=== PATIENT | female | born 1960 | race Caucasian/White ===

== ENCOUNTER 2016-08-20 20:35 | Inpatient (IN) ==
--- OUTSIDE RECORDS SUMMARY | 2016-08-20 20:50 | External Medical Summary | CCD ---
:1960 Author Name HUI GIRALDO Alma Address [address], [place] [phone] Care Team Providers Name Role Phone PHU PHILLIPS Attending Physician Unavailable Vital Signs Unknown or Not Available. Allergies Unknown or Not Available. Procedures Unknown or Not Available. History of Immunizations Unknown or Not Available. Problems Unknown or Not Available. Results Unknown or Not Available. Medications Unknown or Not Available. Medications Administered Unknown or Not Available. Encounters Unknown or Not Available. Social History Smoking Status Code Start Date End Date Never smoker [id number] Patient Decision Aids Unknown or Not Available. Discharge Instructions You were admitted to [facility] on 12/03/2013. You were discharged from [facility] on 12/03/2013. Should you have any questions prior to discharge, please contact a member of your healthcare team. If you have left the hospital and have any questions, please contact your primary care physician. Chief Complaint and Reason For Visit Chief Complaint Date of Onset MRI BRAIN WWO CONTR Function Status Unknown or Not Available. Plan of Care Unknown or Not Available. Referral/Transition of Care Unknown or Not Available.
--- OUTSIDE RECORDS SUMMARY | 2016-08-20 20:50 | External Medical Summary | CCD ---
:1960 Author Name ASHA BUENO Address [address], [place] [id number] Care Team Providers Name Role Phone HEATHER RIOJAS Attending Physician Unavailable Vital Signs Unknown or Not Available. Allergies Allergy Code Allergy Type Reaction Status No Known Drug Allergies 0 No known drug allergies Active Procedures Unknown or Not Available. History of Immunizations Unknown or Not Available. Problems Unknown or Not Available. Results PROTEIN ELECTROPHORESIS, 24-HR URINE - Collect Date/Time: 07/17/2015 07:00 Test Name Code Test Result Test Units Test Ref Range Protein,Total,Urine 2888-6 <4.0 mg/dL Not Estab. Prot,24hr calculated 2889-4 <124.0 30.0-150.0 Albumin, U 19607-6 28.3 % NOT ESTAB. Xzevl-9-Xqhdwnz[place] [address]-0 15.1 % NOT ESTAB. Mxamt-0-Xtzlvxqh, [place] [address]-8 20.0 % [place] [address]-3 8.5 % [place]. [place] [address]-9 28.1 % NOT ESTAB. TOTAL VOLUME: 3100 mL N/A M-Alexandro, % 09186-2 Not Observed N/A Not Observed M-Alexandro, mg/24 hr 86330-3 PRODUCTION METAL SPRAYER N/A Active Medications Unknown or Not Available. Medications Administered During Visit Unknown or Not Available. Encounters Unknown or Not Available. Social History Smoking Status Code Start Date End Date Never smoker [id number] Patient Decision Aids Unknown or Not Available. Discharge Instructions You were admitted to [facility] on 07/15/2015 10:42 You had the following tests done:PROTEIN ELECTROPHORESIS, 24-HR URINE You were discharged from [facility] Should you have any questions prior to discharge, please contact a member of your healthcare team. If you have left the hospital and have any questions, please contact your primary care physician. Chief Complaint and Reason For Visit Chief Complaint Date of Onset RECURRING LAB Function Status Unknown or Not Available. Plan of Care Unknown or Not Available. Referral/Transition of Care Unknown or Not Available.
--- OUTSIDE RECORDS SUMMARY | 2016-08-20 20:50 | External Medical Summary | CCD ---
:1960 Author Name NILDA OLIVARES Address [address] [place], [place] [phone] Care Team Providers Name Role Phone NEIL MAHAN MD Attending Physician Unavailable Vital Signs Unknown. Allergies Unknown. Procedures Unknown. History of Immunizations Unknown. Problems Unknown. Results CBC W/ DIFF Test Name Code Test Result Test Units Test Date/Time WBC 11.6000 x10^3 05/13/2013 13:00 RBC 5.0600 x10^6 05/13/2013 13:00 HEMOGLOBIN 15.7000 g/dL 05/13/2013 13:00 HEMATOCRIT 44.9000 % 05/13/2013 13:00 MCV 89.0000 fL 05/13/2013 13:00 MCH 31.0000 pg 05/13/2013 13:00 MCHC 34.9000 g/dL 05/13/2013 13:00 RDW 11.7000 % 05/13/2013 13:00 PLATELETS 310.0000 x10^3 05/13/2013 13:00 MPV 8.0000 fL 05/13/2013 13:00 NEUTROPHILS 67.6000 % 05/13/2013 13:00 LYMPHOCYTES 26.3000 % 05/13/2013 13:00 MONOCYTES 4.7000 % 05/13/2013 13:00 EOSINOPHILS 1.2000 % 05/13/2013 13:00 BASOPHILS 0.2000 % 05/13/2013 13:00 REFLEX MAN DIFF NO N/A 05/13/2013 13:00 COMP METABOLIC Test Name Code Test Result Test Units Test Date/Time GLUCOSE 100.0000 mg/dL 05/13/2013 13:00 BUN 10.0000 mg/dL 05/13/2013 13:00 CREATININE 1.4000 mg/dL 05/13/2013 13:00 AGE 52.0000 YE[age] 05/13/2013 13:00 GFR 41.6000 05/13/2013 13:00 SODIUM 141.0000 mmol/L 05/13/2013 13:00 POTASSIUM 3.9000 mmol/L 05/13/2013 13:00 CHLORIDE 103.0000 mmol/L 05/13/2013 13:00 CO2 27.0000 mmol/L 05/13/2013 13:00 CALCIUM 9.4000 mg/dL 05/13/2013 13:00 AST 26.0000 U/L 05/13/2013 13:00 ALT 40.0000 U/L 05/13/2013 13:00 ALKALINE PHOS 79.0000 U/L 05/13/2013 13:00 TOTAL PROTEIN 8.0000 g/dL 05/13/2013 13:00 ALBUMIN 4.2000 g/dL 05/13/2013 13:00 TOTAL BILI 0.5000 mg/dL 05/13/2013 13:00 TSH Test Name Code Test Result Test Units Test Date/Time TSH 2.1200 uIU/mL 05/13/2013 13:00 Medications Unknown. Medications Administered Unknown. Encounters Unknown. Social History Smoking Status Code Start Date End Date Never smoker [id number] Patient Decision Aids Unknown. Instructions You were admitted to [facility] on 05/13/2013. You were discharged from [facility] on 05/13/2013. Should you have any questions prior to discharge, please contact a member of your healthcare team. If you have left the hospital and have any questions, please contact your primary care physician. Chief Complaint and Reason For Visit Chief Complaint Date of Onset LAB Function Status Unknown. Plan of Care Unknown. Referral/Transition of Care Unknown.
--- OUTSIDE RECORDS SUMMARY | 2016-08-20 20:50 | External Medical Summary | CCD ---
:1960 Author Name ENZOHUI Alma Address [address], [place] [id number] Care Team Providers Name Role Phone SOFI DIAZ Attending Physician Unavailable Vital Signs Unknown or Not Available. Allergies Allergy Code Allergy Type Reaction Status No Known Drug Allergies 0 No known drug allergies Active Procedures Unknown or Not Available. History of Immunizations Unknown or Not Available. Problems Unknown or Not Available. Results COMP METABOLIC - Collect Date/Time: 06/19/2014 14:50 Test Name Code Test Result Test Units Test Ref Range GLUCOSE 110 mg/dL L=70 H=110 BUN 23 mg/dL L=7 H=18 CREATININE 1.90 mg/dL L=0.60 H=1.30 AGE 53 YEARS GFR 29.2 SODIUM 142 mmol/L L=136 H=145 POTASSIUM 3.9 mmol/L L=3.5 H=5.1 CHLORIDE 104 mmol/L L=98 H=107 CO2 28 mmol/L L=21 H=32 CALCIUM 9.2 mg/dL L=8.5 H=10.1 AST 23 U/L L=15 H=37 ALT 29 U/L L=12 H=78 ALKALINE PHOS 53 U/L L=50 H=136 TOTAL PROTEIN 7.3 g/dL L=6.4 H=8.2 ALBUMIN 3.7 g/dL L=3.4 H=5.0 TOTAL BILI 0.30 mg/dL L=0.00 H=1.00 LIPID PANEL - Collect Date/Time: 06/19/2014 14:50 Test Name Code Test Result Test Units Test Ref Range CHOLESTEROL 170 mg/dL L=0 H=200 TRIGLYCERIDES 183 mg/dL L=30 H=150 HDL 34 mg/dL L=50 H=60 LDL, CALC 99 mg/dL L=0 H=100 VLDL 37 mg/dL L=0 H=40 CHOL/HDL RISK 5.0 RATIO L=0.0 H=4.4 PT FASTING: NO N/A MICROALBUMIN/CREATININE RATIO - Collect Date/Time: 06/20/2014 15:43 Test Name Code Test Result Test Units Test Ref Range MICROALBUMIN 1.0 mg/dL L=0.1 H=2.0 CREAT, URINE 150.2 mg/dL MICROALB/CREAT 6.7 ug/mg L=0.0 H=29.9 Active Medications Unknown or Not Available. Medications Administered During Visit Unknown or Not Available. Encounters Unknown or Not Available. Social History Smoking Status Code Start Date End Date Never smoker [id number] Patient Decision Aids Unknown or Not Available. Discharge Instructions You were [facility] to [facility] on 06/19/2014. You were discharged from [facility] on 06/20/2014. Should you have any questions prior to discharge, please contact a member of your healthcare team. If you have left the hospital and have any questions, please contact your primary care physician. Chief Complaint and Reason For Visit Unknown or Not Available. Function Status Unknown or Not Available. Plan of Care Unknown or Not Available. Referral/Transition of Care Unknown or Not Available.
--- OUTSIDE RECORDS SUMMARY | 2016-08-20 20:50 | External Medical Summary | Continuity of Care Document ---
:1960 Demographics Phone Unavailable Preferred Language Unknown Marital Status Unknown Zoroastrianism Affiliation Unknown Race Unknown Ethnic Group Unknown Author Organization [facility] Allergies Medications Problems Procedures Results Encounters ACCT No. Visit Discharge Status Pt. Type Provider Facility Loc./Unit Complaint Date/Time [id number] 03/04/2016 ACT Unknown 1222 09:48:00 [id number] 08/12/2015 ACT Unknown 0606 08:35:00 [id number] 07/30/2015 ACT Unknown 0519 07:36:00 [id number] 04/24/2015 ACT Unknown 0215 09:50:00 [id number] 03/26/2015 ACT Unknown 1116 18:08:00 [id number] 12/13/2013 ACT Unknown 1007 13:06:00 [id number] 05/20/2013 ACT Unknown 0314 07:13:00 [id number] 05/20/2013 ACT Unknown 0311 07:12:00
--- OUTSIDE RECORDS SUMMARY | 2016-08-20 20:50 | External Medical Summary | CCD ---
:1960 Author Name ASHA BUENO Address [address], [place] [phone] Care Team Providers Name Role Phone VIKASH MAC Attending Physician Unavailable Vital Signs Unknown or Not Available. Allergies Allergy Code Allergy Type Reaction Status No Known Drug Allergies 0 No known drug allergies Active Procedures Unknown or Not Available. History of Immunizations Unknown or Not Available. Problems Unknown or Not Available. Results BASIC METABOLIC - Collect Date/Time: 01/08/2015 13:30 Test Name Code Test Result Test Units Test Ref Range GLUCOSE 110 mg/dL L=70 H=110 BUN 25 mg/dL L=7 H=18 CREATININE 2.00 mg/dL L=0.60 H=1.30 AGE 54 YEARS GFR 27.4 SODIUM 141 mmol/L L=136 H=145 POTASSIUM 4.0 mmol/L L=3.5 H=5.1 CHLORIDE 103 mmol/L L=98 H=107 CO2 29 mmol/L L=21 H=32 CALCIUM 9.6 mg/dL L=8.5 H=10.1 Active Medications Unknown or Not Available. Medications Administered During Visit Unknown or Not Available. Encounters Unknown or Not Available. Social History Smoking Status Code Start Date End Date Never smoker [id number] Patient Decision Aids Unknown or Not Available. Discharge Instructions You were admitted to [facility] on 01/08/2015. You were discharged from [facility] on 01/08/2015. Should you have any questions prior to [...]
--- OUTSIDE RECORDS SUMMARY | 2016-08-20 20:50 | External Medical Summary | CCD ---
:1960 Author Name NILDA OLIVARES Address [address] [place], [place] [address] Care Team Providers Name Role Phone NEIL MAHAN MD Attending Physician Unavailable Vital Signs Unknown. Allergies Unknown. Procedures Unknown. History of Immunizations Unknown. Problems Unknown. Results Unknown. Medications Unknown. Medications Administered Unknown. Encounters Unknown. Social History Smoking Status Code Start Date End Date Never smoker [phone] Patient Decision Aids Unknown. Instructions You were admitted to [facility] on 05/14/2013. You were discharged from [facility] on 05/14/2013. Should you have any questions prior to discharge, please contact a member of your healthcare team. If you have left the hospital and have any questions, please contact your primary care physician. Chief Complaint and Reason For Visit Chief Complaint Date of Onset US DUPLEX OF ABD VESSELS Function Status Unknown. Plan of Care Unknown. Referral/Transition of Care Unknown.
--- OUTSIDE RECORDS SUMMARY | 2016-08-20 20:50 | External Medical Summary | CCD ---
:1960 Author Name ASHA BUENO Address [address] [place] [address], [place] [address] Care Team Providers Name Role Phone HEATHER RIOJAS Attending Physician Unavailable Vital Signs Unknown or Not Available. Allergies Allergy Code Allergy Type Reaction Status No Known Drug Allergies 0 No known drug allergies Active Procedures Unknown or Not Available. History of Immunizations Unknown or Not Available. Problems Unknown or Not Available. Results RENAL FUNCTION PANEL - Collect Date/Time: 07/27/2015 11:42 Test Name Code Test Result Test Units Test Ref Range GLUCOSE 103 mg/dL L=70 H=110 BUN 21 mg/dL L=7 H=18 CREATININE 1.67 mg/dL L=0.60 H=1.30 AGE 54 YEARS GFR 31.7 SODIUM 141 mmol/L L=136 H=145 POTASSIUM 4.3 mmol/L L=3.5 H=5.1 CHLORIDE 105 mmol/L L=98 H=107 CO2 28 mmol/L L=21 H=32 CALCIUM 9.4 mg/dL L=8.5 H=10.1 ALBUMIN 3.8 g/dL L=3.4 H=5.0 PHOSPHORUS 4.0 mg/dL L=2.5 H=4.9 CBC (HEMOGRAM ONLY) - Collect Date/Time: 07/27/2015 11:42 Test Name Code Test Result Test Units Test Ref Range WBC 7.9 x10^3 L=4.8 H=10.8 RBC 4.48 x10^6 L=4.20 H=5.40 HEMOGLOBIN 13.4 g/dL L=12.0 H=16.0 HEMATOCRIT 39.9 % L=37.0 H=47.0 MCV 89 fL L=80 H=100 MCH 30.0 pg L=27.0 H=33.0 MCHC 33.7 g/dL L=33.0 H=37.0 RDW 12.8 % L=11.5 H=14.5 PLATELETS 326 x10^3 L=150 H=450 MPV 7.6 fL L=7.8 H=11.0 PTH, INTACT - Collect Date/Time: 07/27/2015 11:42 Test Name Code Test Result Test Units Test Ref Range PTH, Intact 2731-8 38 pg/mL 15-65 Active Medications Unknown or Not Available. Medications Administered During Visit Unknown or Not Available. Encounters Encounter Diagnosis Diagnosis Code Start Date Chronic kidney disease, stage 4 (severe) N184 07/27/2015 Social History Smoking Status Code Start Date End Date Never smoker [id number] Patient Decision Aids Unknown or Not Available. Discharge Instructions You were admitted to [facility] on 07/27/2015 14:10 with a principal diagnosis of Chronic kidney disease, stage 4 (severe) You had the following tests done:CBC (HEMOGRAM ONLY)PTH, INTACTRENAL FUNCTION PANEL You were discharged from [facility] on 07/27/2015 14:11 Should you have any questions prior to discharge, please contact a member of your healthcare team. If you have left the hospital and have any questions, please contact your primary care physician. Chief Complaint and Reason For Visit Chief Complaint Date of Onset LAB Function Status Unknown or Not Available. Plan of Care Unknown or Not Available. Referral/Transition of Care Unknown or Not Available.
--- OUTSIDE RECORDS SUMMARY | 2016-08-20 20:50 | External Medical Summary | CCD ---
:1960 Author Name ASHA BUENO Address [address], [place] [phone] Care Team Providers Name Role Phone HEATHER RIOJAS Attending Physician Unavailable Vital Signs Unknown or Not Available. Allergies Allergy Code Allergy Type Reaction Status No Known Drug Allergies 0 No known drug allergies Active Procedures Unknown or Not Available. History of Immunizations Unknown or Not Available. Problems Unknown or Not Available. Results RENAL FUNCTION PANEL - Collect Date/Time: 03/02/2015 14:05 Test Name Code Test Result Test Units Test Ref Range GLUCOSE 107 mg/dL L=70 H=110 BUN 17 mg/dL L=7 H=18 CREATININE 2.00 mg/dL L=0.60 H=1.30 AGE 54 YEARS GFR 27.4 SODIUM 138 mmol/L L=136 H=145 POTASSIUM 4.3 mmol/L L=3.5 H=5.1 CHLORIDE 103 mmol/L L=98 H=107 CO2 26 mmol/L L=21 H=32 CALCIUM 9.5 mg/dL L=8.5 H=10.1 ALBUMIN 4.0 g/dL L=3.4 H=5.0 PHOSPHORUS 4.4 mg/dL L=2.5 H=4.9 CREATININE, URINE - Collect Date/Time: 03/02/2015 14:09 Test Name Code Test Result Test Units Test Ref Range CREAT, URINE 45.8 mg/dL TOTAL PROTEIN, URINE - Collect Date/Time: 03/02/2015 14:09 Test Name Code Test Result Test Units Test Ref Range PROTEIN, URINE <6.0 mg/dL L=0.0 H=11.9 UA AUTO W/ MICRO - Collect Date/Time: 03/02/2015 14:09 Test Name Code Test Result Test Units Test Ref Range COLOR Yellow N/A NORMAL: Yellow APPEARANCE Clear N/A NORMAL: Clear GLUCOSE Negative N/A NORMAL: Negative BILIRUBIN Negative N/A NORMAL: Negative KETONE Negative N/A NORMAL: Negative SPEC GRAVITY <=1.005 N/A NORMAL: 1.005-1.030 BLOOD Negative N/A NORMAL: Negative PROTEIN Negative N/A NORMAL: Negative PH 5.0 N/A NORMAL: 5.0-8.0 UROBILINOGEN 0.2 N/A NORMAL: Negative NITRITE Negative N/A NORMAL: Negative LEUKOCYTES Negative N/A NORMAL: Negative MICRO RBC None Seen N/A NORMAL: 0-2 MICRO WBC 0-2 N/A NORMAL: 0-2 BACTERIA None Seen N/A NORMAL: None-Trace EPI CELLS 0-5 N/A NORMAL: 0-15 MUCUS None Seen N/A NORMAL: None-Small AMORPHOUS None Seen N/A NORMAL: None Seen YEAST None Seen N/A NORMAL: None Seen CRYSTALS None Seen N/A NORMAL: None Seen CAST None Seen N/A NORMAL: None Seen URINE CULTURE? NO N/A PTH, INTACT - Collect Date/Time: 03/02/2015 14:05 Test Name Code Test Result Test Units Test Ref Range PTH, Intact 2731-8 31 pg/mL 15-65 Active Medications Unknown or Not Available. Medications Administered During Visit Unknown or Not Available. Encounters Encounter Diagnosis Diagnosis Code Start Date Chronic kidney disease, stage 3 (moderate) N183 03/02/2015 Social History Smoking Status Code Start Date End Date Never smoker [id number] Patient Decision Aids Unknown or Not Available. Discharge Instructions You were admitted to [facility] on 03/02/2015 with a principal diagnosis of Chronic kidney disease, stage 3 (moderate). You had the following tests done:PTH, Intact [facility] Should you have any questions prior to [...]
--- OUTSIDE RECORDS SUMMARY | 2016-08-20 20:50 | External Medical Summary | CCD ---
:1960 Author Name ASHA BUENO Address [address] [place], [place] [phone] Care Team Providers Name Role Phone HEATHER RIOJAS Attending Physician Unavailable Vital Signs Unknown or Not Available. Allergies Allergy Code Allergy Type Reaction Status No Known Drug Allergies 0 No known drug allergies Active Procedures Unknown or Not Available. History of Immunizations Unknown or Not Available. Problems Unknown or Not Available. Results RENAL FUNCTION PANEL - Collect Date/Time: 04/03/2015 11:24 Test Name Code Test Result Test Units Test Ref Range GLUCOSE 127 mg/dL L=70 H=110 BUN 31 mg/dL L=7 H=18 CREATININE 2.00 mg/dL L=0.60 H=1.30 AGE 54 YEARS GFR 27.4 SODIUM 138 mmol/L L=136 H=145 POTASSIUM 3.8 mmol/L L=3.5 H=5.1 CHLORIDE 104 mmol/L L=98 H=107 CO2 26 mmol/L L=21 H=32 CALCIUM 9.7 mg/dL L=8.5 H=10.1 ALBUMIN 3.9 g/dL L=3.4 H=5.0 PHOSPHORUS 3.5 mg/dL L=2.5 H=4.9 CBC (HEMOGRAM ONLY) - Collect Date/Time: 04/03/2015 11:24 Test Name Code Test Result Test Units Test Ref Range WBC 9.9 x10^3 L=4.8 H=10.8 RBC 4.38 x10^6 L=4.20 H=5.40 HEMOGLOBIN 13.5 g/dL L=12.0 H=16.0 HEMATOCRIT 41.7 % L=37.0 H=47.0 MCV 95 fL L=80 H=100 MCH 30.8 pg L=27.0 H=33.0 MCHC 32.4 g/dL L=33.0 H=37.0 RDW 13.0 % L=11.5 H=14.5 PLATELETS 345 x10^3 L=150 H=450 MPV 7.9 fL L=7.8 H=11.0 Active Medications Unknown or Not Available. Medications Administered During Visit Unknown or Not Available. Encounters Encounter Diagnosis Diagnosis Code Start Date Chronic kidney disease, stage 3 (moderate) N183 04/03/2015 Social History Smoking Status Code Start Date End Date Never smoker [id number] Patient Decision Aids Unknown or Not Available. Discharge Instructions You were admitted to [facility] on 04/03/2015 with a principal diagnosis of Chronic kidney disease, stage 3 (moderate). You were discharged from [facility] on 04/03/2015. Should you have any questions prior to [...]
--- OUTSIDE RECORDS SUMMARY | 2016-08-20 20:50 | External Medical Summary | CCD ---
:1960 Author Name ASHA BUENO Address [address], [place] [phone] Care Team Providers Name Role Phone HEATHER RIOJAS Attending Physician Unavailable Vital Signs Unknown or Not Available. Allergies Allergy Code Allergy Type Reaction Status No Known Drug Allergies 0 No known drug allergies Active Procedures Unknown or Not Available. History of Immunizations Unknown or Not Available. Problems Unknown or Not Available. Results RENAL FUNCTION PANEL - Collect Date/Time: 02/03/2016 13:25 Test Name Code Test Result Test Units Test Ref Range GLUCOSE 102 mg/dL L=70 H=110 BUN 22 mg/dL L=7 H=18 CREATININE 1.53 mg/dL L=0.60 H=1.30 AGE 55 YEARS GFR 35.0 L=60.0 H=120 SODIUM 140 mmol/L L=136 H=145 POTASSIUM 4.2 mmol/L L=3.5 H=5.1 CHLORIDE 104 mmol/L L=98 H=107 CO2 29 mmol/L L=21 H=32 CALCIUM 9.2 mg/dL L=8.5 H=10.1 ALBUMIN 4.1 g/dL L=3.4 H=5.0 PHOSPHORUS 5.2 mg/dL L=2.6 H=4.7 Active Medications Unknown or Not Available. Medications Administered During Visit Unknown or Not Available. Encounters Encounter Diagnosis Diagnosis Code Start Date Chronic kidney disease, stage 4 (severe) N184 02/03/2016 Social History Smoking Status Code Start Date End Date Never smoker [id number] Patient Decision Aids Unknown or Not Available. Discharge Instructions You were admitted to [facility] on 02/03/2016 13:17 with a principal diagnosis of Chronic kidney disease, stage 4 (severe) You had the following tests done:RENAL FUNCTION PANEL You were discharged from [facility] on 02/03/2016 13:17 Should you have any questions prior to [...]
[2016-08-20 20:51] VITALS: BMI 34.7
[2016-08-20] MEDS ORDERED: ERTAPENEM 1 G in NS 100 ML IV ONE (21:03)
[2016-08-20] MEDS ORDERED: NS 1,000 ML IV SCH (21:03)
[2016-08-20] MEDS ORDERED: BUPIVACAINE 0.25% (2.5mg/ml) PF 30ml INJECTION ONE (21:10)
--- NOTE | 2016-08-20 21:36 | Anesthesia Preoperative Report ---
Anesthesia Preoperative Record - Date and Time Date: 08/20/16 Preoperative Diagnosis: Acute Appendectomy Proposed Procedure: Lap Appy NPO Since Date: 08/20/16 NPO Since Time: 14:00 Allergies/Adverse Reactions: Allergies Allergy/AdvReac Type Severity Reaction Status Date / Time No Known Drug Allergies Allergy Verified 08/20/16 20:55 - Vital Signs Vital Signs: Temp Pulse Resp BP Pulse Ox 100.7 F H 103 H 26 H 146/69 H 97 08/20/16 20:43 08/20/16 20:50 08/20/16 20:50 08/20/16 20:50 08/20/16 20:50 Height and Weight: Height 1.63 m Weight 91.7 kg Body Mass Index 34.7 - Medications Inpatient Medications: Current Medications Ertapenem 1 g/ Sodium Chloride 100 mls @ 200 mls/hr IV INTRAOP ONE Stop: 08/20/16 21:32 Sodium Chloride (Normal Saline) 1,000 mls @ 50 mls/hr IV .Q20H MITALI Last Admin: 08/20/16 21:11 Dose: 50 mls/hr Is Patient on Beta Pili?: No Beta Pili: No - Medical History Cardiovascular: Reports: Rheumatic Fever Neuro/Musculoskeletal: Reports: Other (Patient having some confusion about her history/ memory issues per spouse) Renal/Endocrine: Reports: Other (Decreased renal function/ patient of Dr Arguello) - Surgical History HEENT Surgeries: Reports: Tonsillectomy GI Surgery/Treatments: Reports: Cholecystectomy - Social History Smoking Status: Never smoker Hx Chewing Tobacco Use: No Second Hand Exposure: No Time spent discussing smoking cessation with patient: 3 to 10 minutes Substance Use Type: does not use Alcohol Intake: current Alcohol Intake Frequency: holidays/special occasions only - Pertinent Findings Laboratory: CBC and BMP 08/20/16 21:18 EKG Rhythm: Normal Sinus Rhythm - Physical Exam Respiratory Exam: Present: lungs clear - Airway Assessment Overall Assessment: may be difficult intubation Overall Assessment: Nurse states that she was placed on oxygen do to decreased saturations. - ASA ASA Score: 2 - Discussion Discussion: Discussed risks/options/alternatives of anesthesia and questions answered. Patient consents. Nursing pain assessment noted. Present for Discussion: spouse, family member Attestation Statement: Prior to the delivery of any anesthetic medication, I examined the patient, developed the plan, obtained the patient's consent and discussed the risk and benefits of the procedure with the patient/guardian. - Additional Information Seen by Anesthesia: Yes
[2016-08-20] MEDS ORDERED: FentaNYL 100 MCG/2 ML INJECTION ONE ×2 (21:54→22:22)
[2016-08-20] MEDS ORDERED: METOPROLOL 5mg/5ml INJECTION IVP ONE (21:54)
[2016-08-20] MEDS ORDERED: ONDANSETRON 4 MG/2 ML INJECTION ONE (21:58)
[2016-08-20] MEDS ORDERED: DEXAMETHASONE 4 MG/ML INJECTION ONE (21:58)
[2016-08-20] MEDS ORDERED: BUPIVACAINE 0.25% (2.5mg/ml) PF 30ml INJECTION SQ ONE (22:08)
[2016-08-20] MEDS ORDERED: ONDANSETRON 4 MG/2 ML INJECTION IVP PRN (22:21)
[2016-08-20] MEDS ORDERED: METOCLOPRAMIDE 10mg/2ml INJECTION IVP PRN (22:21)
[2016-08-20] MEDS ORDERED: HYDROMORPHONE 2 MG/ML INJECTION IVP PRN (22:21)
--- NOTE | 2016-08-20 23:23 | General Surgery Procedure Note ---
Date of Procedure: 08/20/16 Surgeon: Stefanie Postoperative Diagnosis: Acute appendicitis with perforation Procedure: Laparoscopic appendectomy Estimated Blood Loss: See Anesthesia Record.
[2016-08-21] MEDS: NS 1,000 ML IV SCH ×3 (00:18→22:41)
[2016-08-21] MEDS: PIPERACILLIN/TAZOBACTAM 3.375 GM in NS 100 ML IV SCH ×5 (01:43→23:52)
[2016-08-21] MEDS: ACETAMINOPHEN 500 MG TABLET PO PRN ×3 (08:37→21:33)
[2016-08-21] MEDS: Oxycodone *IR* 5 MG TABLET PO PRN ×2 (20:07→21:32)
[2016-08-21] MEDS: MORPHINE SULFATE 10 MG SYRINGE IV PRN (22:12)
[2016-08-22] MEDS: PIPERACILLIN/TAZOBACTAM 3.375 GM in NS 100 ML IV SCH ×3 (05:59→17:34)
--- NOTE | 2016-08-22 06:54 | History and Physical ---
HISTORY OF PRESENT ILLNESS This patient is 55 years old. This patient states she was not having any abdominal pain on 08/19/2016. She was not having any abdominal pain when she went to bed on the night of 08/19/2016. The patient was awakened at 4:00 a.m. on 08/20/2016 with abdominal pain. This was right lower quadrant abdominal pain. The pain was intermittent at first. As the day progressed, the pain became more severe. The patient did go into the emergency room at [place], [place] for evaluation of this abdominal pain. White blood cell count was 28,[address] scan of the abdomen and pelvis performed at [place], [place] did show findings consistent with acute suppurative appendicitis with possible impending rupture. The patient was then transferred from [place], [place] to [facility] for further treatment of this acute appendicitis. PAST MEDICAL HISTORY Previous Operations: Laparoscopic cholecystectomy 20 years ago in [place]. Other Current Medical Problems: 1. Stage 3 chronic kidney disease. The patient sees Dr. Oumar Arguello for treatment of this. 2. Dementia. The patient has recently had evaluation by a neurologist for dementia. CURRENT MEDICATIONS The patient states her only current medications are vitamins. ALLERGY HISTORY The patient states she has no known allergies to medications. PHYSICAL EXAMINATION VITAL SIGNS: Temperature is 100.7 degrees oral. Pulse is 103. Respiratory rate is 26. Blood pressure is 146/69. Oxygen saturation is 97% on oxygen at 2 liters per minute by nasal cannula. Height is 1.63 meters. Weight is 91.7 kg. BMI is 34.7 kg/m2. HEAD, EYES, EARS, NOSE AND THROAT: No abnormalities noted. NECK: No neck masses. CHEST: Lung sounds are clear. BREASTS: Not examined. HEART: Regular rhythm. No murmurs. ABDOMEN: The abdomen is soft. There are no abdominal masses. The patient does have old laparoscopic cholecystectomy incision scars. The patient does have well-localized right lower quadrant abdominal tenderness. SKIN: No jaundice. RECTUM: Exam deferred. EXTREMITIES: No abnormalities noted. LABORATORY DATA CBC was performed at [place], [place] today. White blood cell count is 28,200 with 12 bands and 68% segs. Hemoglobin is 15.2. Hematocrit is 43.9. Serum creatinine is 1.51. BUN is 16. Liver function tests are all normal.. IMAGING DATA This patient did have a CT scan of the abdomen and pelvis performed at [place], [place] on 08/20/2016. The CT scan does show findings consistent with acute suppurative appendicitis with possible impending rupture. The appendix appears to be markedly inflamed. There is no periappendiceal abscess. The patient does have extensive descending and sigmoid colon diverticulosis. There is no evidence of any diverticulitis. IMPRESSION 1. Acute appendicitis. 2. Sepsis. 3. Stage 3 chronic kidney disease. 4. Dementia. 5. Extensive descending and sigmoid colon diverticulosis. PLAN 1. Serum lactate and procalcitonin will be determined preoperatively. 2. Laparoscopic appendectomy with possible conversion to laparotomy with open appendectomy for treatment of acute appendicitis. PATIENT EDUCATION I did talk with the patient and her about performing a laparoscopic appendectomy with possible conversion to laparotomy with open appendectomy. Expected benefits of this operation were reviewed with the patient. Alternatives were reviewed. Potential risks and complications were reviewed including anesthetic risk, bleeding, infection, poor wound healing and injury to other intraabdominal structures. The patient and her were informed that there is a chance that any laparoscopic appendectomy might need to be converted over to an open laparotomy with appendectomy. They do appear to understand this and wish to have the patient proceed with the operation. RUDI
[2016-08-22] MEDS: NS 1,000 ML IV SCH ×2 (07:19→10:10)
[2016-08-22] MEDS: Oxycodone *IR* 5 MG TABLET PO PRN ×2 (07:31→13:12)
[2016-08-22] MEDS: ONDANSETRON 4 MG/2 ML INJECTION IVP PRN ×2 (09:16→23:47)
--- NOTE | 2016-08-22 09:22 | Anesthesia Postoperative Note ---
- Date and Time Date: 08/22/16 Time: 09:21 - Status Patient Participated in Evaluation: Patient Participated in Person Vital Signs: Temp Pulse Resp BP Pulse Ox 97.5 F 90 18 126/75 94 08/22/16 07:46 08/22/16 07:46 08/22/16 07:46 08/22/16 07:46 08/22/16 07:46 Respiratory Function: Airway Patent EKG Rhythm: Normal Sinus Rhythm Mental Status: Alert and Oriented Hydration: Taking PO Fluids Complications During Recover: None Apparent - Follow-Up Instructions Instructions: Per Surgeon
--- NOTE | 2016-08-22 11:14 | Operative Note ---
DATE OF OPERATION 08/20/2016 PREOPERATIVE DIAGNOSIS Acute appendicitis. POSTOPERATIVE DIAGNOSIS Acute appendicitis with perforation and generalized peritonitis. OPERATION Laparoscopic appendectomy. SURGEON Danie Watts MD ANESTHESIA General ASA CLASS 2 FINDINGS This patient did have acute appendicitis. There were at least two perforation sites at the appendix. There was a perforation site at the mid appendix with stool coming out through this. There was another perforation site at the base of the appendix at the point where the appendix joins the cecum. The appendix was severely inflamed. There was purulent fluid throughout the peritoneal cavity. There was purulent fluid at the right lateral gutter and all around the appendix. There was purulent fluid in the pelvis. There was purulent fluid at the right subdiaphragmatic space. There was purulent fluid at the left lateral gutter. There was severe generalized peritonitis in association with all this purulent fluid within the peritoneal cavity. There was no walled off abscess. The terminal ileum appeared normal. The cecum appeared normal. The ascending colon appeared normal. The liver appeared normal. The gallbladder was absent as a result of previous laparoscopic cholecystectomy operation. DESCRIPTION OF OPERATION The patient was placed in supine position on the operating table. General anesthesia was satisfactorily induced. The patient did have a Riley catheter in place already. The abdomen was prepped and draped in routine sterile fashion. The skin and underlying structures at the abdominal wall at a supraumbilical incision site were infiltrated with bupivacaine 0.25% without epinephrine. A supraumbilical incision was made. Veress needle was inserted into the peritoneal cavity through the incision. Pneumoperitoneum was established with carbon dioxide. The Veress needle was removed. A 5 mm port was placed at the supraumbilical incision. The 5 mm laparoscope was inserted through the 5 mm supraumbilical port. The skin and underlying abdominal wall structures were infiltrated with bupivacaine at the lateral margin of the right rectus abdominis muscle at the right upper quadrant of the abdomen at another incision site. An incision was made at this location and a 5 mm port was placed at the right upper quadrant abdominal incision. The skin and underlying abdominal wall structures were infiltrated with bupivacaine at a suprapubic incision site. A suprapubic incision was made at the midline. A 12-mm port was placed at the suprapubic incision. The peritoneal cavity was then examined with a laparoscope with findings as described above. An aspirating cannula was inserted at the right upper quadrant port and used to aspirate some purulent fluid from the right subdiaphragmatic space. This fluid was submitted to the laboratory for aerobic and anaerobic bacterial culture and sensitivity studies. The appendix was grasped and elevated with the endoscopic Levi forceps inserted at the suprapubic port. The mesoappendix was divided with the Ethicon brand 5 mm laparoscopic ultrasonically activated coagulating sanjiv. This was the Harmonic Geovanny ultrasonic sanjiv. This was introduced through the right upper quadrant port. The mesoappendix was coagulated and divided with the Ethicon brand 5 mm laparoscopic ultrasonically activated coagulating sanjiv. The appendix was completely freed up in this manner. The appendix did separate from the cecum at this point due to the perforation site which was present at the base of the cecum. A specimen retrieval pouch was inserted in the peritoneal cavity through the suprapubic port. The appendix was placed in the specimen retrieval pouch. The specimen retrieval pouch containing the appendix was brought out through the suprapubic incision. The appendix was submitted as a specimen for study by the pathologist. The 12 mm port was reinserted at the suprapubic incision. The very small remaining piece of appendiceal stump was dissected out further at this time. It did not look as if we would be able to get a secure closure of the appendiceal stump with placement of Endoloop ligatures. The 5 mm port at the right upper quadrant was removed. The incision at the right upper quadrant was enlarged. A 12-mm port was inserted at the right upper quadrant port site. An EthiStartupMojo brand, Endopath ETS-Flex 45 articulating endoscopic linear cutter stapler was then brought to the operating table. This stapler had a 45 mm long staple line. The blue load doris were used. The endoscopic linear cutter stapler was introduced at the right upper quadrant port. The stapler was placed across the cecum just beneath the appendiceal stump to staple across the cecum just beneath the base of the appendix. The stapler was placed across the cecum just beneath the base of the appendix. The appendiceal stump was elevated with endoscopic Cleveland forceps inserted at the suprapubic port. The stapler at the right upper quadrant port was placed across the margin of the cecum just beneath the appendiceal stump. The stapler was fired. The appendiceal stump and a small rim of cecum were excised. Another specimen retrieval pouch was introduced into the peritoneal cavity through the suprapubic port. The small rim of cecum and the appendiceal stump were placed in the specimen retrieval pouch. This specimen was then brought out of the peritoneal cavity within the specimen retrieval pouch through the suprapubic port. This specimen was placed in the same container as the previous specimen of appendix and these two specimens were submitted together for study by the pathologist. The staple line at the cecum was examined. This area was irrigated. The staple line looked good. The patient did begin to have a little bit of bleeding at the mesoappendix at this time. Two of the Horizon titanium hemoclips were applied to this bleeding point at the mesoappendix. The Horizon clip hides soaker was inserted at the suprapubic port and two of the Horizon titanium hemoclips were applied to this bleeding point at the mesoappendix. This did achieve satisfactory hemostasis at the mesoappendix. More irrigation was performed at the appendectomy site. The staple line continued to look good at the cecum. The hemostasis remained satisfactory. Extensive irrigation was then performed throughout the peritoneal cavity. Irrigation was performed individually at the right subdiaphragmatic space, the right lateral gutter, the periappendiceal area, the pelvis, and the left lateral gutter. All these areas were irrigated repeatedly until the irrigation fluid was clear at all these various areas. The appendectomy site was examined one last time. The staple line at the cecum continued to have a satisfactory appearance. The hemostasis remained satisfactory. The suprapubic port was removed. The 12 mm port at the right upper quadrant was removed. The laparoscope was removed. The supraumbilical port was removed. Carbon dioxide was removed from the peritoneal cavity by desufflation. The fascial layer of the suprapubic incision was closed with a series of simple interrupted stitches using 0 Vicryl suture. The fascial layer of the right upper quadrant abdominal incision was closed with a series of simple interrupted stitches using 0 Vicryl suture. Skin margins were then closed at all the incisions with skin doris. Sterile dressings were applied. The patient did appear to tolerate the operation well. The patient was transferred from the operating room to the recovery room in satisfactory condition. RUDI
--- NOTE | 2016-08-22 11:23 | Progress Note ---
DATE 08/21/2016 POSTOP DAY #1 HISTORY The patient has been up in the chair. She is tolerating a clear liquid diet. INTAKE AND OUTPUT The patient did have urine output of 1050 ml for the last 8-hour shift. PHYSICAL EXAMINATION VITAL SIGNS: Temperature was 100.3 degrees oral at 0800 hours this morning. Most recent temperature was 98.8 degrees oral. Pulse is 83. Respiratory rate is 18. Blood pressure is 105/54. Oxygen saturation is 91% on room air. ABDOMEN: The Band-Aids were all left in place over the abdominal incisions. The abdomen is nondistended. LABORATORY DATA White blood cell count is 24,500 with 16 bands this morning. Hemoglobin is 14.1. Hematocrit is 39.8. Plasma lactate was 2.6 this morning. Procalcitonin was 1.96. Serum creatinine was 1.3 this morning. BUN is 14. Electrolytes are normal. Serum potassium is 4. IMPRESSION 1. Doing well following laparoscopic appendectomy for treatment of acute appendicitis with perforation and generalized peritonitis. 2. Sepsis. PLAN 1. Continue intravenous Zosyn every 6 hours. 2. Continue clear liquid diet. 3. Encourage ambulation. 4. Sequential compression devices for deep venous thrombosis prophylaxis. 5. Continue to monitor temperature, white blood cell count with differential, plasma lactate and procalcitonin to monitor response to medical treatment of sepsis. MTDD
[2016-08-22] MEDS: MORPHINE SULFATE 10 MG SYRINGE IV PRN (15:21)
[2016-08-22] MEDS: D5-1/2NS with KCL 20mEq 1,000 ML IV SCH (15:22)
[2016-08-22] MEDS: PROMETHAZINE 25 MG INJECTION IVP PRN (15:30)
--- NOTE | 2016-08-22 18:06 | Progress Note ---
DATE 08/22/2016 POSTOP DAY #2 HISTORY The patient has been ambulating in the halls. She has not passed any flatus or had a bowel movement since the operation. She is tolerating intake of some clear liquids. INTAKE AND OUTPUT Urine output is good. PHYSICAL EXAMINATION VITAL SIGNS: Temperature is 98.8 degrees oral. Pulse is 96. Respiratory rate is 18. Blood pressure is 139/81. Oxygen saturation is 91% on room air. ABDOMEN: The abdominal incisions all look good. LABORATORY DATA White blood cell count is 19,900 with 3 bands today. Hemoglobin is 12.7. Hematocrit is 37.4. Serum sodium is 142. Serum potassium is 3.7. Serum creatinine is 1.5. BUN is 18. Procalcitonin is 5.83 today. IMPRESSION 1. Doing well following laparoscopic appendectomy for treatment of acute appendicitis with perforation and generalized peritonitis. 2. Sepsis. PLAN 1. Continue treating with Zosyn every six hours. I did check with pharmacy today about the dosage of the Zosyn in this patient with some chronic kidney disease. The current dosage of Zosyn is appropriate with the degree of kidney function which the patient has at this time. 2. Continue clear liquid diet. 3. Continue ambulation. 4. Continue sequential compression devices for deep venous thrombosis prophylaxis. 5. Continue to monitor temperature, white blood cell count with differential and procalcitonin to monitor response to medical treatment of sepsis. 6. Change intravenous fluids from normal saline at 100 mL/hr to D5 half-normal saline with 20 mEq of potassium chloride per liter at 75 mL/hr. I did discuss this with the pharmacy. MTDD
[2016-08-23] MEDS: PIPERACILLIN/TAZOBACTAM 3.375 GM in NS 100 ML IV SCH ×5 (00:32→23:41)
[2016-08-23] MEDS: Oxycodone *IR* 5 MG TABLET PO PRN ×3 (00:33→23:41)
[2016-08-23] MEDS: ONDANSETRON 4 MG/2 ML INJECTION IVP PRN ×2 (00:35→15:45)
[2016-08-23] MEDS: PROMETHAZINE 25 MG INJECTION IVP PRN ×2 (05:53→18:59)
[2016-08-23] MEDS: D5-1/2NS with KCL 20mEq 1,000 ML IV SCH ×3 (05:55→20:55)
[2016-08-23] MEDS: MAG-AL + SIM ORAL LIQUID 30ml PO PRN (12:35)
--- NOTE | 2016-08-23 17:18 | Progress Note ---
DATE 08/23/2016 POSTOP DAY #3 HISTORY The patient continues to ambulate in the halls. She is tolerating intake of clear liquids. She has been passing some flatus during the last 24 hours. She has not had a bowel movement yet since the operation. INTAKE AND OUTPUT Urine output is good. PHYSICAL EXAMINATION VITAL SIGNS: Temperature is 96.6 degrees axillary. Pulse is 90. Respiratory rate is 16. Blood pressure is 125/82. Oxygen saturation is 93% on room air. ABDOMEN: The abdominal incisions all look good. LABORATORY DATA White blood cell count is 19,800 with 2 bands. Hemoglobin is 14.4. Hematocrit is 43. Serum sodium is 140. Serum potassium is 4. Serum creatinine is 1.5. BUN is 15. Serum lactate was 1.1 yesterday. Serum lactate is 1.1 today. Procalcitonin is 3.57 today. IMPRESSION 1. Doing well following laparoscopic appendectomy for treatment of acute appendicitis with perforation and generalized peritonitis. 2. Sepsis. PLAN 1. Continue Zosyn intravenously every six hours. 2. Continue clear liquid diet. 3. Continue ambulation. 4. Continue sequential compression devices for deep venous thrombosis prophylaxis. 5. Continue to monitor temperature, white blood cell count with differential and procalcitonin to monitor response to medical treatment of sepsis. MTDD
[2016-08-24] MEDS: ONDANSETRON 4 MG/2 ML INJECTION IVP PRN ×3 (00:15→17:54)
[2016-08-24] MEDS: MAG-AL + SIM ORAL LIQUID 30ml PO PRN ×2 (01:33→22:56)
[2016-08-24] MEDS: Oxycodone *IR* 5 MG TABLET PO PRN ×3 (04:53→23:41)
[2016-08-24] MEDS: PIPERACILLIN/TAZOBACTAM 3.375 GM in NS 100 ML IV SCH ×3 (05:47→17:54)
[2016-08-24] MEDS: PROMETHAZINE 25 MG INJECTION IVP PRN (05:47)
[2016-08-24] MEDS: D5-1/2NS with KCL 20mEq 1,000 ML IV SCH ×3 (08:25→11:36)
[2016-08-24] MEDS ORDERED: FUROSEMIDE 20 MG/2 ML INJECTION IVP ONE (10:05)
--- NOTE | 2016-08-24 11:13 | Progress Note ---
DATE 08/24/2016 POSTOP DAY #4 HISTORY The patient has been having quite a bit of nausea today. She has drowsiness from using Phenergan. She has used oxycodone 10 mg at times for pain control. The patient is passing flatus. She has not had a bowel movement yet since the time of operation. The patient is tolerating intake of clear liquids without vomiting. INTAKE AND OUTPUT The urine output for the patient is good. PHYSICAL EXAMINATION VITAL SIGNS: Temperature is 97.9 degrees oral. The patient has been afebrile since 08/21/2016. Pulse is 92. Respiratory rate is 20. Blood pressure is 167/ 84. Oxygen saturation is 92% on room air. ABDOMEN: The abdominal incisions look good. LABORATORY DATA White blood cell count is 16,000 with 9 bands today. Hemoglobin is 14.1. Hematocrit is 41.8. Procalcitonin is 2.1. Serum creatinine is 1.3. BUN is 12. Serum potassium is 4. IMPRESSION 1. Doing well following laparoscopic appendectomy for treatment of acute appendicitis with perforation and generalized peritonitis. 2. Sepsis. PLAN 1. Continue Zosyn intravenously every 6 hours. 2. Advance diet as tolerated to a regular diet. 3. Continue ambulation. 4. Continue sequential compression devices for deep venous thrombosis prophylaxis. 5. Continue to monitor temperature, white blood cell count with differential and procalcitonin to monitor response to medical treatment of sepsis. 6. Discontinue Phenergan and start Reglan for treatment of nausea. Continue the intravenous Zofran which the patient is taking for treatment of nausea. 7. Reduce dose of oxycodone to help treat the nausea. 8. Decrease rate of intravenous fluid administration. 9. Give the patient some intravenous Lasix today since she has had some weight gain. MTDD
[2016-08-24] MEDS: METOCLOPRAMIDE 10mg/2ml INJECTION IVP PRN ×2 (12:48→23:42)
[2016-08-25] MEDS: PIPERACILLIN/TAZOBACTAM 3.375 GM in NS 100 ML IV SCH ×4 (02:26→17:50)
[2016-08-25] MEDS: D5-1/2NS with KCL 20mEq 1,000 ML IV SCH (11:11)
--- NOTE | 2016-08-25 13:29 | Progress Note ---
DATE 08/25/2016 POSTOP DAY #5 HISTORY The patient is ambulating in the halls. Nausea is much improved compared to yesterday. The patient is tolerating a full liquid diet with toast and crackers this morning. She has no nausea or vomiting. She continues to pass flatus. The patient did have a liquid bowel movement this morning. She feels better overall. INTAKE AND OUTPUT The urine output remains good. PHYSICAL EXAMINATION VITAL SIGNS: Temperature is 96.8 degrees oral. Pulse is 89. Respiratory rate is 16. Blood pressure is 144/86. Oxygen saturation is 95% on room air. ABDOMEN: All of the abdominal incisions look good.. LABORATORY DATA White blood cell count is 14,500 with no bands today. Hemoglobin is 13.7. Hematocrit is 40. Procalcitonin is 1.34. Serum creatinine is 1.3. Serum potassium is 3.5. IMPRESSION 1. Doing well following laparoscopic appendectomy for treatment of acute appendicitis with perforation and generalized peritonitis. 2. Resolving sepsis. PLAN 1. Continue Zosyn intravenously every 6 hours. 2. Continue to monitor temperature and white blood cell count with differential to monitor response to medical treatment of sepsis. 3. Continue to advance diet as tolerated to a regular diet. 4. Continue ambulation. 5. Continue sequential compression devices for deep venous thrombosis prophylaxis. MTDD
[2016-08-25] MEDS: ACETAMINOPHEN 500 MG TABLET PO PRN (16:33)
[2016-08-26] MEDS: PIPERACILLIN/TAZOBACTAM 3.375 GM in NS 100 ML IV SCH ×4 (01:21→20:47)
[2016-08-26] MEDS: D5-1/2NS with KCL 20mEq 1,000 ML IV SCH ×2 (01:46→10:51)
--- NOTE | 2016-08-26 12:38 | Progress Note ---
DATE 08/26/2016 POSTOP DAY #6 HISTORY The patient continues to ambulate in the halls. The patient is tolerating a full liquid diet with toast and crackers. She is having no nausea or vomiting. The patient had a bowel movement yesterday evening. She had another bowel movement this morning. PHYSICAL EXAMINATION VITAL SIGNS: Temperature is 98.6 degrees oral. Pulse is 95. Respiratory rate is 16. Blood pressure is 140/68. Oxygen saturation is 92% on room air. ABDOMEN: All of the abdominal incisions look good. LABORATORY DATA White blood cell count is 13,300 with 2 bands. Hemoglobin is 13. Hematocrit is 39.7. Serum potassium is 3.7. Serum creatinine is 1.3. IMPRESSION 1. Doing well following laparoscopic appendectomy for treatment of acute appendicitis with perforation and generalized peritonitis. 2. Resolving sepsis. PLAN 1. Continue Zosyn intravenously every 6 hours. 2. Continue to monitor temperature and white blood cell count with differential to monitor response to medical treatment of sepsis. 3. Continue to advance diet as tolerated to regular diet. 4. Continue ambulation. 5. Continue sequential compression devices for deep venous thrombosis prophylaxis. [facility]
[2016-08-27] MEDS: PIPERACILLIN/TAZOBACTAM 3.375 GM in NS 100 ML IV SCH ×4 (02:49→20:51)
[2016-08-27] MEDS: ACETAMINOPHEN 500 MG TABLET PO PRN ×3 (03:21→23:31)
[2016-08-27] MEDS ORDERED: NS FLUSH BAG 500ml IV PRN (10:19)
[2016-08-27] MEDS: D5-1/2NS with KCL 20mEq 1,000 ML IV SCH (12:51)
[2016-08-27 13:02] VITALS: RESP 16
[2016-08-27] MEDS: SALINE FLUSH 10ml SYRINGE IVF SCH (14:08)
[2016-08-28] MEDS: Oxycodone *IR* 5 MG TABLET PO PRN (00:27)
[2016-08-28] MEDS: SALINE FLUSH 10ml SYRINGE IVF SCH (02:33)
[2016-08-28] MEDS: PIPERACILLIN/TAZOBACTAM 3.375 GM in NS 100 ML IV SCH ×3 (02:33→13:54)
[2016-08-28 07:46] VITALS: BP 133/74; TEMP 97.6
[2016-08-28 07:48] VITALS: PULSE 85; O2SAT 95
--- NOTE | 2016-08-28 10:32 | Progress Note ---
DATE 08/27/2016 POSTOP DAY #7 HISTORY The patient states that she feels better today. She feels better today than at any other time since the operation. She is ambulating in the halls. The patient tolerated a regular diet for breakfast. The patient did also have a soft formed bowel movement today. She has minimal discomfort. PHYSICAL EXAMINATION VITAL SIGNS: Temperature is 98 degrees oral. Pulse is 86. Respiratory rate is 18. Blood pressure is 148/79. Oxygen saturation is 95% on room air. ABDOMEN: All the abdominal incisions look good. LABORATORY DATA White blood cell count is 15,400 today with 4 bands. Hemoglobin is 13. Hematocrit is 39.4. Procalcitonin is 1.46 today. Serum creatinine is 1.3. IMPRESSION 1. Doing well overall following laparoscopic appendectomy for treatment of acute appendicitis with perforation and generalized peritonitis. 2. Resolving sepsis. 3. Leukocytosis which is a little worse today. PLAN 1. Discontinue intravenous fluids and change the IV to IV lock status. 2. Continue Zosyn intravenously every six hours. 3. Recheck white blood cell count with procalcitonin again tomorrow to make sure that the leukocytosis does not continue to worsen. 4. Continue sequential compression devices for deep venous thrombosis prophylaxis. [facility]
--- NOTE | 2016-08-28 12:16 | Discharge Instructions ---
Discharge Plan - Med Rec/Dispo Referrals/Follow Up: Danie Wtats MD [Physician] - (May will call patient to schedule followup office visit.) Jaylon Instructions: Laparoscopic Appendectomy (DC) Prescriptions: Continue Ginkgo Biloba 40 mg PO DAILY Vit B12/Intrinsic Fact/Folate [Intrinsi F21-Qepfpj Tablet] 1 tab PO DAILY Multivit-Min/Folic Acid/Vit K1 [Multi For Her 50 Plus Softgel] 1 cap PO DAILY - Disposition 01 Discharged Home, Self-Care
--- NOTE | 2016-08-28 12:36 | Discharge Instructions ---
Discharge Plan - Med Rec/Dispo Referrals/Follow Up: Danie Watts MD [Physician] - (May will call patient to schedule followup office visit.) Jaylon Instructions: Laparoscopic Appendectomy (DC) Prescriptions: Continue Ginkgo Biloba 40 mg PO DAILY Vit B12/Intrinsic Fact/Folate [Intrinsi I21-[id number] Tablet] 1 tab PO DAILY Multivit-Min/Folic Acid/Vit K1 [Multi For Her 50 Plus Softgel] 1 cap PO DAILY - Disposition 01 Discharged Home, Self-Care
--- NOTE | 2016-08-28 12:52 | Progress Note ---
DATE 08/28/2016 POSTOP DAY #8 HISTORY The patient continues to feel well. She is tolerating a regular diet. She is ambulating in the halls. The patient did have another formed bowel movement overnight last night. She had a little bit of left lower quadrant abdominal discomfort which was relieved as soon as she had the bowel movement. She has no pain at all at the abdomen as she is lying in bed at this time. PHYSICAL EXAMINATION VITAL SIGNS: Temperature is 97.6 degrees oral. Pulse is 85. Respiratory rate is 16. Blood pressure is 133/74. Oxygen saturation is 95% on room air. ABDOMEN: All the abdominal incisions look good. No sign of infection at any of the incisions. LABORATORY DATA White blood cell count is 15,400 with 5 bands today. Hemoglobin is 13.1. Hematocrit is 39.5. Serum procalcitonin is 0.56. Serum creatinine is 1.3. IMPRESSION Doing well following laparoscopic appendectomy for treatment of acute appendicitis with perforation and acute generalized peritonitis. PLAN 1. Discontinue Zosyn today. 2. Dismiss patient from [facility] today. DISCHARGE MEDICATIONS 1. Resume medications which the patient was taking prior to admission to the hospital. 2. Cipro 500 mg one p.o. b.i.d. (dispense six - no refills). 3. Flagyl 500 mg one p.o. t.i.d. (dispense nine - no refills). 4. Tylenol 325 mg one to two tablets p.o. every five hours p.r.n. pain. DISCHARGE DISPOSITION Followup office visit with Dr. Watts on 08/31/2016 or 09/01/2016. RUDI
[2016-08-29] MEDS ORDERED: VIT K1 PO SCH (09:00)
[2016-08-29] MEDS ORDERED: FOLIC ACID PO SCH (09:00)
[2016-08-29] MEDS ORDERED: INTRINSIC FACT PO SCH (09:00)
[2016-08-29] MEDS ORDERED: VIT B12 PO SCH (09:00)
[2016-08-29] MEDS ORDERED: [UNRECOGNIZED DRUG - OTHER] PO SCH (09:00)
[2016-08-29] MEDS ORDERED: [UNRECOGNIZED DRUG - OTHER] PO SCH (09:00)
[2016-08-29] MEDS ORDERED: MULTIVIT MIN PO SCH (09:00)
[2016-08-29] MEDS ORDERED: FOLATE PO SCH (09:00)
[2016-08-29] MEDS ORDERED: GINKGO BILOBA 40 MG PO SCH (09:00)
--- NOTE | 2016-09-02 19:29 | Discharge Summary ---
DISCHARGE DIAGNOSES 1. Acute appendicitis with perforation. 2. Acute generalized peritonitis. 3. Sepsis. 4. Stage III chronic kidney disease. 5. Dementia. 6. Extensive descending and sigmoid colon diverticulosis. OPERATION Laparoscopic appendectomy on 08/20/2016. HOSPITAL COURSE This patient was admitted to [facility] by Dr. Watts on 08/20/2016. History and physical examination findings at the time of admission to the hospital can be found in the dictated admission history and physical examination report. The patient did have a CBC performed at [place], [place] prior to admission which showed a white blood cell count of 28 ,200 with 12 bands and 68% segs. The patient did have a CT scan of the pelvis performed at [place], [place] on 08/20/2016. The CT scan did show findings consistent with acute suppurative appendicitis with possible impending rupture. The CT scan also showed some extensive descending and sigmoid colon diverticulosis. The patient did have laboratory tests repeated at [facility] at the time of admission to the hospital. White blood cell count was 22,500 with 6 bands at the time of admission to the hospital at [facility]. Plasma lactate was 1.6. Procalcitonin was 0.11. Serum creatinine at the time of admission to [facility] on 08/20/2016 was 1.3. The patient was given intravenous Invanz preoperatively. The patient did undergo laparoscopic appendectomy by Dr. Watts on 08/20/2016 at [facility]. Details of operative findings can be found in the dictated operative report in the chart. The patient was found to have acute appendicitis with perforation. The patient was found to have acute generalized peritonitis. The patient did tolerate the operation well. The patient was started on treatment postoperatively with Zosyn given intravenously every six hours. Sequential compression devices were being used for deep venous thrombosis prophylaxis. On the first postoperative day, the patient was tolerating a clear liquid diet. The patient had a good urine output. Temperature was 100.3 degrees oral at 0800 hours. White blood cell count was 24,500 with 16 bands. Plasma lactate was 2.6. Procalcitonin was 1.96. Serum creatinine was 1.3. The patient was thought to have sepsis associated with the acute appendicitis with perforation. Intravenous Zosyn was continued every six hours. Clear liquid diet was continued. Ambulation was encouraged. Sequential compression devices were being used for deep venous thrombosis prophylaxis. On the second postoperative day, the patient was ambulating in the halls. She had not yet passed any flatus or had a bowel movement since the operation. The patient continued to tolerate intake of some clear liquids. Urine output remained good. The patient was afebrile. The abdominal incisions looked good. White blood cell count was 19,900 with 3 bands. Serum creatinine was 1.5. Procalcitonin was 5.83. Serum lactate was 1.1. The patient continued to receive Zosyn intravenously every six hours. Clear liquid diet was continued. Ambulation was continued. Sequential compression devices were continued for deep venous thrombosis prophylaxis. Intravenous fluids were changed at this time. On the third postoperative day, the patient continued to ambulate in the halls. She was tolerating an intake of clear liquids. She reported passing some flatus during the previous 24 hours. She had not yet had a bowel movement since the operation. Urine output was good. The patient was afebrile. White blood cell count was 19,800 with 2 bands. Serum creatinine was 1.5. Serum lactate was 1.1. Procalcitonin was 3.57. The patient appeared to be doing well. Intravenous Zosyn was continued. Clear liquid diet was continued. Ambulation was continued. Sequential compression devices were continued for deep venous thrombosis prophylaxis. On the fourth postoperative day, the patient reported having quite a bit of nausea. The patient was passing flatus. She had not yet had a bowel movement since the time of operation. The patient was tolerating intake of clear liquids without any vomiting. Urine output was good. The patient continued to be afebrile. The abdominal incisions looked good. White blood cell count was 16,000 with 9 bands. Procalcitonin was 2.1. Serum creatinine was 1.3. The patient continued to receive Zosyn intravenously every six hours. Diet was advanced as tolerated to a regular diet. Ambulation was continued. Sequential compression devices were continued for deep venous thrombosis prophylaxis. The dose of oxycodone was reduced to help treat nausea. Rate of administration of intravenous fluids was decreased further. The patient was given some intravenous Lasix at this time since she had experienced some weight gain. On the fifth postoperative day, the patient was ambulating in the halls. The patient reported that the nausea was now much improved compared to the previous day. The patient was tolerating a full liquid diet with toast and crackers at this time. She was having no nausea or vomiting. She continued to pass flatus. The patient did have a bowel movement on the morning of the fifth postoperative day. Urine output remained good. The patient remained afebrile. Abdominal incisions looked good. White blood cell count was 14,500 with no bands. Procalcitonin was 1.34. Serum creatinine was 1.3. Zosyn was continued every six hours intravenously. Diet continued to be advanced as tolerated. Ambulation was continued. Sequential compression devices were continued for deep venous thrombosis prophylaxis. On the sixth postoperative day, the patient continued to ambulate in the halls. The patient was tolerating a full liquid diet with toast and crackers. She was having no nausea or vomiting. The patient did have a bowel movement on the previous evening. She had another bowel movement on the morning of the sixth postoperative day. The patient remained afebrile. Abdominal incisions looked good. White blood cell count was 13,300 with 2 bands. Serum creatinine was 1.3. Intravenous Zosyn was continued. Diet continued to be advanced as tolerated. Ambulation was continued. On the seventh postoperative day, the patient stated that she felt better. She stated that she felt better at this time than she had at any other time since the operation. She was ambulating in the halls. The patient was now tolerating a regular diet. The patient did have a soft formed bowel movement on the seventh postoperative day. She had minimal discomfort. The patient remained afebrile. All the abdominal incisions looked good. White blood cell count was 15,400 with 4 bands. Procalcitonin was 1.46. Serum creatinine was 1.3. The sepsis appeared to be resolving overall. The patient did have some leukocytosis which was a little worse at this time. The administration of intravenous fluids was discontinued and the IV was changed to IV lock status. Intravenous Zosyn was continued. Sequential compression devices were continued for deep venous thrombosis prophylaxis. On the eighth postoperative day, the patient continued to feel well. She was tolerating a regular diet. She was ambulating in the halls. The patient did have another formed bowel movement overnight on the previous night. She had a little bit of left lower quadrant abdominal discomfort which was relieved as soon as she had the bowel movement. She was having no further abdominal pain on the morning of the eighth postoperative day. The patient remained afebrile. All the abdominal incisions looked good. There was no sign of infection at any of the incisions. White blood cell count was 15,400 with 5 bands. Serum procalcitonin was 0.56. Serum creatinine was 1.3. The patient appeared to be doing well overall. Zosyn was discontinued at this time. The patient was dismissed from [facility] at this time in stable condition. A pathology report was returned on the appendix submitted at the time of the operation performed on 08/20/2016. Pathology report diagnosis on the appendix was acute appendicitis. DISCHARGE MEDICATIONS 1. Cipro 500 mg one p.o. b.i.d. (dispense six - no refills). 2. Flagyl 500 mg one p.o. t.i.d. (dispense nine - no refills). 3. Tylenol 325 mg one to two tablets p.o. every five hours p.r.n. pain. DISCHARGE DISPOSITION Followup office visit with Dr. Watts on 08/31/2016 or 09/01/2016. RUDI
== END 2016-08-28 15:00 | disposition home or self-care (01) | DRG 853 ==
LOC: SRG 20:35 → SUR 20:35 → SRG 21:00
PROVIDERS: ADMIT Surgery; ATTEND Surgery